=== PATIENT | male | born 1975 ===

== ENCOUNTER 2024-07-10 12:22 | Emergency (ER) | payer OTHER ==
[~2024-07-10] VITALS: Ht 172.7 cm; Wt 120.0 kg
[2024-07-10] MEDS ORDERED: ZESTRIL40 MG PO (13:13)
[2024-07-10] MEDS ORDERED: LIPITOR10 MG PO (13:14)
[2024-07-10] MEDS ORDERED: LIDOCAINE 2% VISCOUS 6 ML SYR TOP ONE (13:15)
[2024-07-10 15:05] LABS: BILIRUBIN, URINE NEGATIVE (negative); BLOOD/HGB, URINE TRACE-I (Negative); KETONE, URINE NEGATIVE (Negative); LEUK ESTERASE, URINE SMALL (negative); NITRITE, URINE NEGATIVE (negative)
[2024-07-10 15:10] LABS: EPITHELIAL CELLS, URINE SQUAMOUS 1+ /lpf (0-1+)
[2024-07-10 15:11] LABS: BACTERIA, URINE 3+ /hpf (negative); CASTS, URINE NONE SEEN \\lpf; COLLECTION TYPE, URINE CLEAN CATCH; CRYSTALS, URINE NONE SEEN (0-1+); REFLEX CULTURE, URINE Yes (No); WHITE BLOOD CELLS, URINE 41-50 /HPF (0-5)
[2024-07-10] MEDS ORDERED: LIDOCAINE 2% VISCOUS 6 ML SYR ONE (17:10)
[2024-07-10] MEDS ORDERED: CEPHALEXIN500 MG PO (18:01)
[2024-07-10 18:36] VITALS: BP 144/83
== END 2024-07-10 18:36 | disposition short-term general hospital (02) ==
LOC: ED 12:22
PROVIDERS: Emergency Medicine
DX: R33.9 Retention of urine, unspecified (principal); N39.0 Urinary tract infection, site not specified; Z79.899 Other long term (current) drug therapy
CPT/HCPCS: 51702; 51798; 81001; 87088; 99284-25

== ENCOUNTER 2024-08-10 13:17 | Emergency (ER) | payer OTHER ==
[~2024-08-10] VITALS: Ht 172.7 cm; Wt 117.1 kg
[~2024-08-10 13:17] MED LIST: CEPHALEXIN500 MG PO; LIPITOR10 MG PO; ZESTRIL40 MG PO
[2024-08-10] MEDS ORDERED: FLOMAX0.4 MG PO (15:23)
[2024-08-10 16:24] LABS: BILIRUBIN, URINE NEGATIVE (negative); BLOOD/HGB, URINE LARGE (Negative); KETONE, URINE SMALL (Negative); LEUK ESTERASE, URINE SMALL (negative); NITRITE, URINE POSITIVE (negative)
[2024-08-10 16:30] LABS: BACTERIA, URINE 2+ /hpf (negative); CASTS, URINE NONE SEEN \\lpf; COLLECTION TYPE, URINE CLEAN CATCH; CRYSTALS, URINE NONE SEEN (0-1+); EPITHELIAL CELLS, URINE NONE SEEN /lpf (0-1+); REFLEX CULTURE, URINE Yes (No); WHITE BLOOD CELLS, URINE 21-40 /HPF (0-5)
[2024-08-10] MEDS ORDERED: MACROBID 100 M100 MG PO (16:45)
[2024-08-10 17:10] VITALS: BP 121/80
== END 2024-08-10 17:10 | disposition home or self-care (01) ==
LOC: ED 13:17
PROVIDERS: Emergency Medicine
DX: T83.090A Other mechanical complication of cystostomy catheter, initial encounter (principal); N39.0 Urinary tract infection, site not specified; E78.00 Pure hypercholesterolemia, unspecified; I10 Essential (primary) hypertension; Z79.899 Other long term (current) drug therapy
CPT/HCPCS: 51798; 81001; 87088; 99283-25